=== PATIENT | female | born 1940 | race Caucasian/White ===

== ENCOUNTER 2018-01-03 10:02 | Inpatient (IN) | END 2018-01-05 19:15 | DRG 470 ==

== ENCOUNTER 2018-08-13 06:11 | Inpatient (IN) | payer MEDICARE, OTHER ==
[~2018-08-13] VITALS: Ht 152.4 cm; Wt 59.9 kg
[2018-08-13] VITALS (29 sets, daily range): BP systolic 113–180; BP diastolic 55–90; PULSE 56–88; RESP 14–20
[~2018-08-13 06:11] MED LIST: ACETAMINOPHEN 500 MG TAB PO ONE; DEXAMETHASONE 4 MG/ML 1 ML INJ IV ONE; HIP PAIN COCKTAIL VANCO INJ SCH; LACTATED RINGER'S 1,000 ML IV SCH; LANSOPRAZOLE 30 MG CAP PO ONE; ONDANSETRON 4 MG INJ IV ONE; TRANEXAMIC ACID 1GM/100ML(PMX) 100 ML INTRA-OP X1 IVPB ONE; VANCOMYCIN 1 GM (PMX) 250 ML IVPB ONE; oxyCODONE (CR) 10 MG TAB [oxyCONTIN] PO ONE
--- NOTE | 2018-08-13 06:25 | HPN ---
Date/Time of Note Date/Time of Note DATE: 08/13/18 TIME: 06:24 Interval H&P Admission Note Pt. seen H&P reviewed: No system changes JESSICA DUDLEY MD August 13, 2018 06:24
[2018-08-13] MEDS ORDERED: POLYMYXIN B 500000 UNIT INJ ONE (06:51)
--- NOTE | 2018-08-13 07:02 | PREAC ---
Date/Time of Note Date/Time of Note DATE: 08/13/18 TIME: 06:57 Anesthesia Eval and Record Evaluation Time Pre-Procedure Interview DATE: 08/13/18 TIME: 06:57 Age 77 Sex female NPO: 8 hrs Preoperative diagnosis DJD Planned procedure TKA R. Past Medical History Past Medical History: Includes Cardio: Dyslipidemia GI: Obesity Surgery & Anesthesia Issues Hx of PONV (Possibly Du to Doramorph) Meds Anticoagulation: No Beta Tan within 24 hr: No Reason Beta Tan not given: Pt. not on B-Tan No Active Prescriptions or Reported Meds Current Medications Lactated Ringer's 1,000 ml @ 125 mls/hr Q8H IV ; Start 08/13/18 at 06:00; Stop 08/13/18 at 13:59 Vancomycin HCl 250 ml @ 250 mls/hr PRE-OP ONCE IVPB ; Start 08/13/18 at 06:00; Stop 08/13/18 at 06:59 Ropivacaine/ Morphine Sulfate/ Clonidine HCl/ Epinephrine/ Ketorolac Tromethamine/ Vancomycin HCl/ Sodium Chloride INTRA-OP INJ ; Start 08/13/18 at 06:00 Meds reviewed: Yes Allergies Coded Allergies: Penicillins (Verified Allergy, Mild, rash, 01/01/18) milk (Verified Allergy, Mild, diarrhea, 01/03/18) Allergies Reviewed: Yes Labs/Studies Labs Reviewed: Reviewed by anesthesiologist test: N/A Pre-procedure Exam Airway: Adequate mouth opening Mallampati: Mallampati III Teeth: Normal Lung: Normal Heart: Normal ASA Physical Status ASA physical status: 2 Emergency: None Planned Anesthetic General/MAC: LMA (Spinal for Post Op Pain) Pre-operative Attestations Prior to commencing anesthesia and surgery, the patient was re-evaluated, there was verification of: *The patient's identity *The results of appropriate recent lab work and preoperative vital signs *The above evaluation not changing prior to induction *Anesthetic plan, risk benefits, alternative and complications discussed with patient/family; questions answered; patient/family understands, accepts and wishes to proceed. VITOR MIX MD August 13, 2018 07:02
[2018-08-13] MEDS ORDERED: PHENYLephrine (100 MCG/ML) 10ML SYG ONE (07:04)
[2018-08-13] MEDS ORDERED: DESFLURANE 15 MIN ONE (07:04)
[2018-08-13] MEDS ORDERED: MIDAZOLAM 1 MG/ML 2 ML INJ ONE (07:04)
[2018-08-13] MEDS ORDERED: PROPOFOL 20 ML ONE (07:04)
[2018-08-13] MEDS ORDERED: ASPI81TA52 PO (07:08)
[2018-08-13] MEDS ORDERED: VIT1TABL46 PO (07:08)
[2018-08-13] MEDS ORDERED: CHOL100062 PO (07:09)
[2018-08-13] MEDS ORDERED: ASCO500C7 PO (07:09)
[2018-08-13] MEDS ORDERED: ONDANSETRON 4 MG INJ ONE (07:12)
[2018-08-13] MEDS ORDERED: ACETAMINOPHEN 1000MG/100ML IV 100 ML IVPB ONE (07:30)
[2018-08-13] MEDS: TRANEXAMIC ACID 1GM/100ML(PMX) 100 ML PRE-OP X1 IVPB ONE ×2 (08:05→09:09)
[2018-08-13] MEDS ORDERED: BACITRACIN 50000 UNITS INJ IRR ONE (08:28)
[2018-08-13] MEDS ORDERED: TRANEXAMIC ACID 1GM/100ML(PMX) 100 ML ONE (08:55)
[2018-08-13] MEDS ORDERED: ACETAMINOPHEN 500 MG TAB PO PRN (09:00)
[2018-08-13] MEDS ORDERED: ONDANSETRON 4 MG INJ IV PRN (09:00)
[2018-08-13] MEDS ORDERED: ROPIVACAINE 0.5 % 30 ML VIAL ONE (09:26)
--- NOTE | 2018-08-13 09:34 | SIPON ---
Date/Time of Note Date/Time of Note DATE: 08/13/18 TIME: 09:33 Operative Report Preoperative Diagnosis Right Knee Osteoarthritis Postoperative Diagnosis Same Operation/Procedure Performed Right Total Knee Arthroplasty Surgeon Jess Dudley MD child development assistant Reagan López Second assist: RICKI JEAN-BAPTISTE Anesthesia: spinal Estimated blood loss: 250 - 300 ml's Transfusion Required none Specimen bone Grafts/Implants none Complications none JESS DUDLEY MD August 13, 2018 09:34
[2018-08-13] MEDS ORDERED: ICOS1CAP PO (09:41)
[2018-08-13] MEDS ORDERED: SIMV5TAB14 PO (09:41)
--- NOTE | 2018-08-13 09:45 | OPR ---
Date/Time of Note Date/Time of Note DATE: 08/13/18 TIME: 09:40 Operative Report Free Text/Dictation DATE OF OPERATION: August 13, 2018 SURGEON: Jessica Dudley MD BPM ANALYST: Reagan GUEVARA BPM ANALYST: MANDY Henry PREOPERATIVE DIAGNOSIS: Right knee osteoarthritis. POSTOPERATIVE DIAGNOSIS: Right knee osteoarthritis. PROCEDURES PERFORMED: Right total knee arthroplasty, CPT code 48932. ANESTHESIOLOGIST: Dr. Borden ANESTHESIA: Spinal. ESTIMATED BLOOD LOSS: 250 mL. COMPLICATIONS: None. SPECIMENS: Resected bone. DISPOSITION: PACU in stable condition. TOURNIQUET TIME: 46 minutes at 250 mmHg. IMPLANT USED: Roman and Nephew size 2 Kayla tibial baseplate, size 3 standard posterior stabilized Oxinium femur, size 11mm high flexion polyethylene, size 32 mm patella. INDICATION FOR PROCEDURE: This is an 77-year-old female with end-stage osteoarthritis of the right knee who had failed nonoperative management. Risks, benefits, alternatives of surgical intervention were discussed with the patient and informed consent was obtained. The risks of surgery include but are not limited to infection, deep venous thrombosis, pulmonary embolism, damage to nerves and blood vessels, numbness around incision site, stiffness of knee, need for total knee manipulation under anesthesia, need for blood transfuion, heart attack, stroke, risks associated with anesthesia, implant loosening, wear of prosthesis, need for revision surgery, and . DESCRIPTION OF PROCEDURE: The patient was met in the preoperative suite. The correct operative site was confirmed and marked. The patient was then brought into operating room. After induction of anesthesia, the patient was placed in the supine position on the operating room table. A tourniquet was applied to right upper thigh. The right lower extremity was prepped and draped in the usual sterile fashion. Before starting, a timeout was taken to identify the correct operative site and confirm preoperative antibiotics consisting of 1 g of IV Ancef, along with 1 g of tranexamic acid were administered. At this point, the right leg was elevated and exsanguinated with an Esmarch and tourniquet was then insufflated for the above noted time. A midline incision was made and median parapatellar arthrotomy was then completed. The lateral patellar retinacular ligaments were released. A sleeve of tissue was released from the medial proximal tibia. The cruciate ligaments and the menisci were then excised. At this point, the custom distal femur cutting block was then pinned and 9.5 mm was resected from the distal femur. The 4-in-1 cutting block, size 3 was then placed. An jan wing was used to confirm that notching of the anterior cortex of the femur would not occur. The anterior and posterior condylar cuts were completed followed by the anterior and posterior chamfer cuts. The osteophytes were then removed with a rongeur. At this point, the tibia was subluxed anteriorly. Appropriate retractors were placed. The custom tibial cutting block was then pinned. The drop was used to ensure the correct alignment. Osteophytes were then removed. At this point, the flexion extension gaps were checked with a 9 mm gap checkering machine operator and noted to be loose in both. Next, trial 3 standard femur was then pinned and the box cut was then completed. The tibia was then subluxed anteriorly and measured to size 2. The tibial tray was then pinned and a keel was then punched. The trial components were placed with a 11 mm polyethylene and noted to have full extension and greater than 120 degrees of flexion. The patella was then subluxed laterally and sized to 22 mm. Approximately, 7 mm was resected. The patellar was sized to 32 mm. The button was placed and noted to have excellent patellar tracking. The trial components were removed. All bony surfaces were pulse lavaged and dried. The appropriate size components were then cemented and the knee was held in extension with a 11 mm trial polyethylene until the cement cured. Once the cement had cured, the trial polyethylene was removed and the appropriate size polyethylene was then placed. The tranexamic acid was redosed. The cocktail was then injected. The extensor mechanism was closed using #1 Stratafix and the subcutaneous tissue with 2-0 Vicryl and the skin with 4-0 Monocryl. Steri-Strips were applied along with a sterile dressing. There were no complications. The patient was transferred to PACU in stable condition. POSTOPERATIVE CARE: The patient will be weightbearing as tolerated. The patient will work with physical therapy, and will receive two additional doses of IV antibiotics along with aspirin 81 mg p.o. b.i.d. for 6 weeks. Upon discharge, patient will follow up in my office within 2 weeks postoperatively. JESSICA DUDLEY MD August 13, 2018 09:45
--- NOTE | 2018-08-13 09:56 | PAC ---
Date/Time of Note Date/Time of Note DATE: 08/13/18 TIME: 09:56 Post-Anesthesia Notes Post-Anesthesia Note Activity: WNL Respiratory function: WNL Cardiovascular function: WNL Mental status: Baseline Pain reasonably controlled: Yes Hydration appropriate: Yes Nausea/Vomiting absent: Yes VITOR MIX MD August 13, 2018 09:56
[2018-08-13] MEDS ORDERED: SENNA/DOCUSATE NA (8.6MG/50MG) TAB PO PRN (10:00)
[2018-08-13] MEDS ORDERED: NA PHOSPHATE/BIPHOS 133 ML ENEMA PR PRN (10:00)
[2018-08-13] MEDS ORDERED: NACL 0.9% 3 ML SYG IV SCH (10:00)
[2018-08-13] MEDS ORDERED: NALOXONE (0.4 MG/ML) INJ IV PRN (10:00)
[2018-08-13] MEDS ORDERED: BISACODYL 10 MG SUPP PR PRN (10:00)
[2018-08-13] MEDS ORDERED: MAGNESIUM HYDROXIDE 30ML CUP PO PRN (10:00)
[2018-08-13] MEDS ORDERED: DOCUSATE SODIUM 100 MG CAP PO ONE (10:00)
--- NOTE | 2018-08-13 14:40 | CONS ---
Assessment/Plan Assessment/Plan Hospital Course (Demo Recall) SUBJECTIVE: Lying in bed, no acute distress. OBJECTIVE: Vital signs-see below PHYSICAL EXAM: Constitutional: Adequately built,not in acute distress. HEENT: Head atraumatic and normocephalic. Eyes: Extraocular muscles intact. Anicteric sclerae. Pupils equal bilaterally, reactive to light. NECK: Supple without lymph node. CHEST: Clear and good breath sounds equally. No wheezing. No rhonchi. HEART: S1, S2. Regular rate and rhythm. ABDOMEN: Soft/non tender with no rebound tenderness. Bowel sounds were present. EXTREMITIES: Right knee covered with dressing c/d/i. no cyanosis, clubbing or edema. NEUROLOGIC: Alert and oriented x3. No focal deficit. No sensory deficit. PSYCHOSOCIAL: No signs of depression. INTEGUMENTARY: No open wounds. ASSESSMENT AND PLAN:77 yo F w/ hyperlipidemia, gume knee osteoarthritis with a history of left total knee arthroplasty in 2018, brought in for elective right total knee arthroplasty.. Right knee osteoarthritis -Status post right total knee arthroplasty 08/13/2089 -dvt ppx,pain control -Weightbearing as appropriate per surgical team Dyslipidemia -Resume statin/omega-3 supplementation Hypertension, likely postoperative changes/pain -continue to monitor for now. -We will reassess need for initiation of antihypertensive if indicated. Chronic anemia -Previous labs from prior admissions showed anemia. Will obtain iron panel and treat accordingly. History of left total knee arthroplasty. DVT prophylaxis: Twice daily per orthopedic/SCDs Thank you for allowing us to partake in the care of this pleasant lady. We will follow patient along with you. Patient was seen in collaboration with Dr. Damon. Approximately 60 m spent on this consultation. Consultation Date/Type/Reason Admit Date/Time August 13, 2018 at 06:11 Type of Consult internal medicine Requesting Provider: JESSICA DUDLEY MD Date/Time of Note DATE: 08/13/18 TIME: 14:23 Hx of Present Illness 77-year-old female with a history of hyperlipidemia, bilateral knee osteoarthritis with a history of left total knee arthroplasty in 2018, not in for elective right total knee arthroplasty. Patient underwent right total knee arthroplasty on 08/13/2018. Hospitalist consultation was requested postoperatively for co-medical management. At my encounter with the patient, she is lying in bed, denies chest pain, palpitation, shortness of breath, nausea, vomiting, abdominal pain, loss of conscious, headache, dizziness, fever, chills or other constitutional symptoms. Right knee covered with dressing, no pain reported. A 12 point review of system was assessed and is negative other than what is mentioned in the HPI. Past Medical History See HPI Home Meds Reported Medications Icosapent Ethyl (VASCEPA) 1 Gm Capsule, 1 GM PO BID, CAP 08/13/18 Simvastatin* (Simvastatin*) 5 Mg Tablet, 5 MG PO QHS, #30 TAB 08/13/18 Ascorbic Acid* (Vitamin C*) 500 Mg Capsule.sa, 500 MG PO DAILY, CAP 08/13/18 Cholecalciferol* (Vitamin D3*) 1,000 Unit Tablet, 1000 UNIT PO DAILY, TAB 08/13/18 Vitamin B Complex* (Vitamin B Complex*) 1 Each Tablet, 1 TAB PO DAILY, TAB 08/13/18 Aspirin (Low Dose Aspirin) 81 Mg Tablet.dr, 81 MG PO DAILY, #30 TAB 08/13/18 Medications Current Medications Ropivacaine/ Morphine Sulfate/ Clonidine HCl/ Epinephrine/ Ketorolac Tromethamine/ Vancomycin HCl/ Sodium Chloride INTRA-OP INJ ; Start 08/13/18 at 06:00 Acetaminophen (Tylenol Tab) 500 mg Q4H PRN PO .PAIN 1-3; Start 08/13/18 at 09:00 Ondansetron HCl (Zofran Inj) 4 mg Q6H PRN IV .NAUSEA/VOMITING; Start 08/13/18 at 09:00 Miscellaneous Information (* Miscellaneous Pharmacy Order) GIVEN NEURAXIAL XX ; Start 08/13/18 at 09:00 IV Flush (NS 3 ml) 3 ml PER PROTOCOL IV ; Start 08/13/18 at 10:00 Ketorolac Tromethamine (Toradol) 15 mg Q6H PRN IV .PAIN; Start 08/13/18 at 10:00 Vancomycin HCl 250 ml @ 125 mls/hr Q12H IVPB ; Start 08/13/18 at 18:00; Stop 08/14/18 at 07:59 Celecoxib (Celebrex) 100 mg BID PO ; Start 08/14/18 at 09:00 Gabapentin (Neurontin) 100 mg TID PO ; Start 08/13/18 at 13:00 Pantoprazole (Protonix Tab) 40 mg DAILY@06 PO ; Start 08/15/18 at 06:00 Docusate Sodium (Colace) 200 mg BID PO ; Start 08/14/18 at 09:00; Stop 08/17/18 at 08:59 Simethicone (Mylicon) 80 mg TID PRN PO .GAS; Start 08/13/18 at 10:00 Senna/Docusate Sodium (Senokot-S) 2 tab BID PRN PO .CONSTIPATION; Start 08/13/18 at 10:00 Magnesium Hydroxide (Milk Of Mag) 30 ml HS PRN PO .CONSTIPATION; Start 08/13/18 at 10:00 Bisacodyl (Dulcolax Supp) 10 mg DAILY PRN MO .CONSTIPATION; Start 08/13/18 at 10:00 Sodium Biphosphate/ Sodium Phosphate (Fleet Enema) 133 ml DAILY PRN MO .CONSTIPATION; Start 08/13/18 at 10:00 Naloxone HCl (Narcan) 0.2 mg Q2M PRN IV .RESP RATE; Start 08/13/18 at 10:00 Aspirin (Halfprin) 81 mg BID PO ; Start 08/14/18 at 09:00 Tramadol HCl (Ultram) 50 mg Q6H PRN GTB MODERATE PAIN LEVEL 4-6; Start 08/13/18 at 10:00 Allergies: Coded Allergies: Penicillins (Verified Allergy, Mild, rash, 08/13/18) milk (Verified Allergy, Mild, diarrhea, 08/13/18) Past Surgical History See HPI Social History Denied history of alcohol, smoking or illicit drug use Smoking Status: Never smoker Exam/Review of Systems Exam Vitals Vital Signs Date Temp Pulse Resp B/P (MAP) Pulse Ox O2 O2 Flow FiO2 Time Delivery Rate 08/13/18 56 15 131/59 100 Nasal 2.0 12:08 (83) Cannula 08/13/18 98.2 09:57 Medications Medication Current Medications Ropivacaine/ Morphine Sulfate/ Clonidine HCl/ Epinephrine/ Ketorolac Tromethamine/ Vancomycin HCl/ Sodium Chloride INTRA-OP INJ ; Start 08/13/18 at 06:00 Acetaminophen (Tylenol Tab) 500 mg Q4H PRN PO .PAIN 1-3; Start 08/13/18 at 09:00 Ondansetron HCl (Zofran Inj) 4 mg Q6H PRN IV .NAUSEA/VOMITING; Start 08/13/18 at 09:00 Miscellaneous Information (* Miscellaneous Pharmacy Order) GIVEN NEURAXIAL XX ; Start 08/13/18 at 09:00 IV Flush (NS 3 ml) 3 ml PER PROTOCOL IV ; Start 08/13/18 at 10:00 Ketorolac Tromethamine (Toradol) 15 mg Q6H PRN IV .PAIN; Start 08/13/18 at 10:00 Vancomycin HCl 250 ml @ 125 mls/hr Q12H IVPB ; Start 08/13/18 at 18:00; Stop 08/14/18 at 07:59 Celecoxib (Celebrex) 100 mg BID PO ; Start 08/14/18 at 09:00 Gabapentin (Neurontin) 100 mg TID PO ; Start 08/13/18 at 13:00 Pantoprazole (Protonix Tab) 40 mg DAILY@06 PO ; Start 08/15/18 at 06:00 Docusate Sodium (Colace) 200 mg BID PO ; Start 08/14/18 at 09:00; Stop 08/17/18 at 08:59 Simethicone (Mylicon) 80 mg TID PRN PO .GAS; Start 08/13/18 at 10:00 Senna/Docusate Sodium (Senokot-S) 2 tab BID PRN PO .CONSTIPATION; Start 08/13/18 at 10:00 Magnesium Hydroxide (Milk Of Mag) 30 ml HS PRN PO .CONSTIPATION; Start 08/13/18 at 10:00 Bisacodyl (Dulcolax Supp) 10 mg DAILY PRN MO .CONSTIPATION; Start 08/13/18 at 10:00 Sodium Biphosphate/ Sodium Phosphate (Fleet Enema) 133 ml DAILY PRN MO .CONSTIPATION; Start 08/13/18 at 10:00 Naloxone HCl (Narcan) 0.2 mg Q2M PRN IV .RESP RATE; Start 08/13/18 at 10:00 Aspirin (Halfprin) 81 mg BID PO ; Start 08/14/18 at 09:00 Tramadol HCl (Ultram) 50 mg Q6H PRN GTB MODERATE PAIN LEVEL 4-6; Start 08/13/18 at 10:00 ALEX SON NP August 13, 2018 14:38
[2018-08-13] MEDS ORDERED: hydrALAzine 20 MG INJ IV PRN (15:00)
[2018-08-13] MEDS: GABAPENTIN 100 MG CAP PO SCH ×2 (15:20→20:21)
[2018-08-13] MEDS: FISH OIL 1,000 MG CAP PO SCH ×2 (15:20→20:21)
[2018-08-13] MEDS: VANCOMYCIN 1 GM (PMX) 250 ML IVPB SCH (18:00)
[2018-08-13] MEDS: ATORVASTATIN 10 MG TAB PO SCH (20:21)
[2018-08-14 01:23] VITALS: BP 118/62; PULSE 74; RESP 17
[2018-08-14] MEDS: VANCOMYCIN 1 GM (PMX) 250 ML IVPB SCH (06:19)
[2018-08-14] MEDS: KETOROLAC 15 MG INJ IV PRN ×2 (06:22→21:26)
[2018-08-14 07:28] VITALS: BP 112/53; PULSE 64; RESP 18
[2018-08-14] MEDS: VITAMIN B COMPLEX/VIT C CAP PO SCH (08:43)
[2018-08-14] MEDS: ASPIRIN (EC) 81 MG TAB PO SCH ×2 (08:43→20:00)
[2018-08-14] MEDS: ASCORBIC ACID 500 MG TAB PO SCH (08:43)
[2018-08-14] MEDS: GABAPENTIN 100 MG CAP PO SCH ×3 (08:43→20:00)
[2018-08-14] MEDS: CHOLECALCIFEROL 1,000 UNIT TAB PO SCH (08:43)
[2018-08-14] MEDS: DOCUSATE SODIUM 100 MG CAP PO SCH ×2 (08:43→20:01)
[2018-08-14] MEDS: CELECOXIB 100 MG CAP PO SCH ×2 (08:43→20:01)
[2018-08-14] MEDS: FISH OIL 1,000 MG CAP PO SCH ×2 (08:43→20:00)
--- NOTE | 2018-08-14 11:35 | CONS ---
Assessment/Plan Assessment/Plan Hospital Course (Demo Recall) SUBJECTIVE: Right knee pain well controlled. OBJECTIVE: Physical Exam General: Adequately build 77 year-old female lying in bed in no apparent distress. HEENT: Normocephalic, atraumatic. Eyes: Anicteric sclerae, conjunctivae clear. ENT: Nasal septum midline, oral mucosa moist. Neck supple, no JVD noticed. Respiratory: Bilaterally clear breath sounds. No use of accessory muscles of respiration. No adventitious breath sounds. Cardiovascular: S1, S2 heard. Regular rate and rhythm. Abdomen: Soft, nontender, and nondistended. Bowel sounds positive in all 4 quadrants. Genitourinary: Deferred. Extremities: No cyanosis, no clubbing, no edema. Peripheral pulses palpable. Neurologic: Cranial nerves II through XII grossly intact. The patient is awake, alert, and oriented. Skin: Normal skin turgor. No skin rashes. Labs & Vitals per chart ASSESSMENT & PLAN 77-year-old female with comorbidities including dyslipidemia and bilateral knee osteoarthritis with history of left total knee arthroplasty in 2018. The patient was brought to to [facility] electively for a right total knee arthroplasty. The patient underwent the arthroplasty on August 13, 2018 and was admitted to inpatient setting for further monitoring. 1. Right knee osteoarthritis. -Status post right total knee arthroplasty on 08/13/2018. -Postoperative day #1. -Continue pain control. -Physical therapy as per orthopedic surgery. -Anticoagulation as per orthopedic surgery. 2. Dyslipidemia. -Continue statin and omega-3 supplementation. 3. Normocytic anemia. -Most probably anemia of chronic disease. -Monitor H&H closely. CODE STATUS: Full code Diet: Low-cholesterol diet. Anticoagulation: As per orthopedic surgery. Patient remains stable on postoperative day #1. Discharge planning as per orthopedic surgery. The patient was seen in collaboration with Dr. Story. Consultation Date/Type/Reason Admit Date/Time August 13, 2018 at 06:11 Initial Consult Date August 13, 2018 Type of Consult Medical Reason for Consultation Medical management. Requesting Provider: JESSICA DUDLEY MD Date/Time of Note DATE: 08/14/18 TIME: 11:33 Exam/Review of Systems Exam Vitals Vital Signs Date Temp Pulse Resp B/P (MAP) Pulse Ox O2 O2 Flow FiO2 Time Delivery Rate 08/14/18 97.9 64 18 112/53 93 07:28 (72) 08/13/18 Nasal 19:52 Cannula 08/13/18 2.0 16:25 Intake and Output 08/13/18 08/13/18 08/14/18 1414:59 22:59 06:59 IntakeIntake Total 2200 ml 1730 ml OutputOutput Total 50 ml BalanceBalance 2150 ml 1730 ml Results Result Diagram: 08/14/18 0430 08/14/18 0430 Results 24hrs Laboratory Tests Test 08/14/18 04:30 08/14/18 07:01 White Blood Count 12.0 H Red Blood Count 4.30 Hemoglobin 11.8 L Hematocrit 36.3 L Mean Corpuscular Volume 84.4 Mean Corpuscular Hemoglobin 27.4 L Mean Corpuscular Hemoglobin Concent 32.5 Red Cell Distribution Width 14.1 Platelet Count 233 Mean Platelet Volume 9.3 Immature Granulocytes % 0.500 H Neutrophils % 62.6 Lymphocytes % 24.6 Monocytes % 12.2 H Eosinophils % 0.0 Basophils % 0.1 Nucleated Red Blood Cells % 0.0 Immature Granulocytes # 0.060 H Neutrophils # 7.5 Lymphocytes # 3.0 H Monocytes # 1.5 H Eosinophils # 0.0 Basophils # 0.0 Nucleated Red Blood Cells # 0.0 Sodium Level 143 Potassium Level 4.3 Chloride Level 108 Carbon Dioxide Level 30 Anion Gap 5 Blood Urea Nitrogen 21 H Creatinine 0.83 Est Glomerular Filtrat Rate mL/min Glucose Level 143 Hemoglobin A1c 5.8 Calcium Level 8.7 Iron Level 50 Total Iron Binding Capacity 265 Percent Iron Saturation 19 L Triglycerides Level 171 H Cholesterol Level 207 H LDL Cholesterol, Calculated 135 HDL Cholesterol 38 Cholesterol/HDL Ratio 5.4 Lab Scanned Report REFERENCE LAB Medications Medication Current Medications Acetaminophen (Tylenol Tab) 500 mg Q4H PRN PO .PAIN 1-3; Start 08/13/18 at 09:00 Ondansetron HCl (Zofran Inj) 4 mg Q6H PRN IV .NAUSEA/VOMITING; Start 08/13/18 at 09:00 Miscellaneous Information (* Miscellaneous Pharmacy Order) GIVEN NEURAXIAL XX ; Start 08/13/18 at 09:00 IV Flush (NS 3 ml) 3 ml PER PROTOCOL IV ; Start 08/13/18 at 10:00 Ketorolac Tromethamine (Toradol) 15 mg Q6H PRN IV .PAIN Last administered on 08/14/18 06:22; Admin Dose 15 MG; Start 08/13/18 at 10:00 Celecoxib (Celebrex) 100 mg BID PO Last administered on 08/14/18 08:43; Admin Dose 100 MG; Start 08/14/18 at 09:00 Gabapentin (Neurontin) 100 mg TID PO Last administered on 08/14/18 08:43; Admin Dose 100 MG; Start 08/13/18 at 13:00 Pantoprazole (Protonix Tab) 40 mg DAILY@06 PO ; Start 08/15/18 at 06:00 Docusate Sodium (Colace) 200 mg BID PO Last administered on 08/14/18 08:43; Admin Dose 200 MG; Start 08/14/18 at 09:00; Stop 08/17/18 at 08:59 Simethicone (Mylicon) 80 mg TID PRN PO .GAS; Start 08/13/18 at 10:00 Senna/Docusate Sodium (Senokot-S) 2 tab BID PRN PO .CONSTIPATION; Start 08/13/18 at 10:00 Magnesium Hydroxide (Milk Of Mag) 30 ml HS PRN PO .CONSTIPATION; Start 08/13/18 at 10:00 Bisacodyl (Dulcolax Supp) 10 mg DAILY PRN [place] .CONSTIPATION; Start 08/13/18 at 10:00 Sodium Biphosphate/ Sodium Phosphate (Fleet Enema) 133 ml DAILY PRN LA .CONSTIPATION; Start 08/13/18 at 10:00 Naloxone HCl (Narcan) 0.2 mg Q2M PRN IV .RESP RATE; Start 08/13/18 at 10:00 Aspirin (Halfprin) 81 mg BID PO Last administered on 08/14/18 08:43; Admin Dose 81 MG; Start 08/14/18 at 09:00 Tramadol HCl (Ultram) 50 mg Q6H PRN GTB MODERATE PAIN LEVEL 4-6; Start 08/13/18 at 10:00 Ascorbic Acid (Vitamin C) 500 mg DAILY PO Last administered on 08/14/18 08:43; Admin Dose 500 MG; Start 08/14/18 at 09:00 Cholecalciferol (Vitamin D) 1,000 unit DAILY PO Last administered on 08/14/18 08:43; Admin Dose 1,000 UNIT; Start 08/14/18 at 09:00 Vitamin B Complex/ Vitamin C (Berocca) 1 cap DAILY PO Last administered on 08/14/18at 08:43; Admin Dose 1 CAP; Start 08/14/18 at 09:00 Fish Oil (Fish Oil) 1,000 mg BID PO Last administered on 08/14/18at 08:43; Admin Dose 1,000 MG; Start 08/13/18 at 15:00 Atorvastatin Calcium (Lipitor) 10 mg QHS PO Last administered on 08/13/18at 20:21; Admin Dose 10 MG; Start 08/13/18 at 21:00 Hydralazine HCl (Apresoline) 10 mg Q6H PRN IV sbp>160; Start 08/13/18 at 15:00 BIBIANA GAYTAN NP August 14, 2018 11:35
[2018-08-14 13:32] VITALS: BP 97/48; PULSE 69; RESP 18
[2018-08-14 14:00] VITALS: BP 115/58; PULSE 68; RESP 20
[2018-08-14] MEDS: traMADol 50 MG TAB GTB PRN ×2 (14:22→20:01)
--- NOTE | 2018-08-14 17:51 | QN ---
Documentation Comment As Physician Advisor I have reviewed the chart and have determined that as of today, this patient continues to receive medically necessary care required for the diagnosis and treatment of illness or injury. There has been no unreasonable delay in the rendering of medically necessary services, and medically necessary care has required a length of stay greater than two midnights. Additional information gained during the stay now suggests this patient should have been classified as an inpatient at the time of admission, and I will change the status to inpatient to reflect that medical judgment. Besides the notes from the medical providers, the following information was used in this determination: Comorbidities including dyslipidemia, anemia, and age >75 years Intravenous pain medications Ongoing PT needs. Please call me at [phone] with questions. MADAY MCFADDEN MD August 14, 2018 17:51
[2018-08-14] MEDS: ATORVASTATIN 10 MG TAB PO SCH (20:01)
[2018-08-14 20:18] VITALS: BP 114/52; PULSE 66; RESP 20
[2018-08-15 01:32] VITALS: BP 130/60; PULSE 74; RESP 18
[2018-08-15] MEDS: traMADol 50 MG TAB GTB PRN ×3 (01:33→19:35)
[2018-08-15] MEDS: PANTOPRAZOLE (EC) 40 MG TAB PO SCH (06:21)
[2018-08-15 09:09] VITALS: BP 126/61; PULSE 60; RESP 18
[2018-08-15] MEDS: DOCUSATE SODIUM 100 MG CAP PO SCH ×2 (09:48→20:12)
[2018-08-15] MEDS: ASPIRIN (EC) 81 MG TAB PO SCH ×2 (09:49→20:12)
[2018-08-15] MEDS: FISH OIL 1,000 MG CAP PO SCH ×2 (09:49→20:12)
[2018-08-15] MEDS: VITAMIN B COMPLEX/VIT C CAP PO SCH (09:49)
[2018-08-15] MEDS: CHOLECALCIFEROL 1,000 UNIT TAB PO SCH (09:49)
[2018-08-15] MEDS: CELECOXIB 100 MG CAP PO SCH ×2 (09:49→20:12)
[2018-08-15] MEDS: ASCORBIC ACID 500 MG TAB PO SCH (09:49)
[2018-08-15] MEDS: GABAPENTIN 100 MG CAP PO SCH ×3 (09:50→20:12)
[2018-08-15] MEDS: KETOROLAC 15 MG INJ IV PRN (09:51)
--- NOTE | 2018-08-15 11:30 | CONS ---
Assessment/Plan Assessment/Plan Hospital Course (Demo Recall) SUBJECTIVE: Right knee pain well controlled. OBJECTIVE: Physical Exam General: Adequately build 77 year-old female lying in bed in no apparent distress. HEENT: Normocephalic, atraumatic. Eyes: Anicteric sclerae, conjunctivae clear. ENT: Nasal septum midline, oral mucosa moist. Neck supple, no JVD noticed. Respiratory: Bilaterally clear breath sounds. No use of accessory muscles of respiration. No adventitious breath sounds. Cardiovascular: S1, S2 heard. Regular rate and rhythm. Abdomen: Soft, nontender, and nondistended. Bowel sounds positive in all 4 quadrants. Genitourinary: Deferred. Extremities: No cyanosis, no clubbing, no edema. Peripheral pulses palpable. Neurologic: Cranial nerves II through XII grossly intact. The patient is awake, alert, and oriented. Skin: Normal skin turgor. No skin rashes. Labs & Vitals per chart ASSESSMENT & PLAN 77-year-old female with comorbidities including dyslipidemia and bilateral knee osteoarthritis with history of left total knee arthroplasty in 2018. The patient was brought to to [facility] electively for a right total knee arthroplasty. The patient underwent the arthroplasty on August 13, 2018 and was admitted to inpatient setting for further monitoring. 1. Right knee osteoarthritis. -Status post right total knee arthroplasty on 08/13/2018. -Postoperative day #2. -Continue pain control. -Physical therapy as per orthopedic surgery. -Anticoagulation as per orthopedic surgery. 2. Dyslipidemia. -Continue statin and omega-3 supplementation. 3. Normocytic anemia. -Most probably anemia of chronic disease. -Monitor H&H closely. CODE STATUS: Full code Diet: Low-cholesterol diet. Anticoagulation: As per orthopedic surgery. Patient remains stable on postoperative day #2. Minimal hyperkalemia noticed. Monitor. Discharge planning as per orthopedic surgery. The patient was seen in collaboration with Dr. Story. Consultation Date/Type/Reason Admit Date/Time August 14, 2018 at 14:54 Initial Consult Date August 13, 2018 Type of Consult Medical Reason for Consultation Medical management. Requesting Provider: JESSICA DUDLEY MD Date/Time of Note DATE: 08/15/18 TIME: 11:28 Exam/Review of Systems Exam Vitals Vital Signs Date Temp Pulse Resp B/P (MAP) Pulse Ox O2 O2 Flow FiO2 Time Delivery Rate 08/15/18 97.8 60 18 126/61 99 09:09 (82) 08/13/18 Nasal 19:52 Cannula 08/13/18 2.0 16:25 Intake and Output 08/14/18 08/14/18 08/15/18 1515:00 23:00 07:00 IntakeIntake Total 550 ml 650 ml BalanceBalance 550 ml 650 ml Results Result Diagram: 08/15/18 0429 08/15/18 0429 Results 24hrs Laboratory Tests Test 08/15/18 04:29 White Blood Count 9.8 Red Blood Count 3.93 L Hemoglobin 10.9 L Hematocrit 34.3 L Mean Corpuscular Volume 87.3 Mean Corpuscular Hemoglobin 27.7 L Mean Corpuscular Hemoglobin Concent 31.8 L Red Cell Distribution Width 14.5 Platelet Count 197 Mean Platelet Volume 9.2 Immature Granulocytes % 0.300 Neutrophils % 49.4 Lymphocytes % 37.3 Monocytes % 11.8 H Eosinophils % 0.9 Basophils % 0.3 Nucleated Red Blood Cells % 0.0 Immature Granulocytes # 0.030 Neutrophils # 4.8 Lymphocytes # 3.7 H Monocytes # 1.2 H Eosinophils # 0.1 Basophils # 0.0 Nucleated Red Blood Cells # 0.0 Sodium Level 142 Potassium Level 5.2 H Chloride Level 105 Carbon Dioxide Level 34 H Anion Gap 3 L Blood Urea Nitrogen 25 H Creatinine 0.89 Est Glomerular Filtrat Rate mL/min Glucose Level 98 # Calcium Level 8.4 Medications Medication Current Medications Acetaminophen (Tylenol Tab) 500 mg Q4H PRN PO .PAIN 1-3; Start 08/13/18 at 09:00 Ondansetron HCl (Zofran Inj) 4 mg Q6H PRN IV .NAUSEA/VOMITING; Start 08/13/18 at 09:00 Miscellaneous Information (* Miscellaneous Pharmacy Order) GIVEN NEURAXIAL XX ; Start 08/13/18 at 09:00 IV Flush (NS 3 ml) 3 ml PER PROTOCOL IV ; Start 08/13/18 at 10:00 Ketorolac Tromethamine (Toradol) 15 mg Q6H PRN IV .PAIN Last administered on at 09:51; Admin Dose 15 MG; Start 08/13/18 at 10:00 Celecoxib (Celebrex) 100 mg BID PO Last administered on 08/15/18at 09:49; Admin Dose 100 MG; Start 08/14/18 at 09:00 Gabapentin (Neurontin) 100 mg TID PO Last administered on 08/15/18at 09:50; Admin Dose 100 MG; Start 08/13/18 at 13:00 Pantoprazole (Protonix Tab) 40 mg DAILY@06 PO Last administered on 08/15/18at 06:21; Admin Dose 40 MG; Start 08/15/18 at 06:00 Docusate Sodium (Colace) 200 mg BID PO Last administered on 08/15/18at 09:48; A dmin Dose 200 MG; Start 08/14/18 at 09:00; Stop 08/17/18 at 08:59 Simethicone (Mylicon) 80 mg TID PRN PO .GAS; Start 08/13/18 at 10:00 Senna/Docusate Sodium (Senokot-S) 2 tab BID PRN PO .CONSTIPATION; Start 08/13/18 at 10:00 Magnesium Hydroxide (Milk Of Mag) 30 ml HS PRN PO .CONSTIPATION; Start 08/13/18 at 10:00 Bisacodyl (Dulcolax Supp) 10 mg DAILY PRN [place] .CONSTIPATION; Start 08/13/18 at 10:00 Sodium Biphosphate/ Sodium Phosphate (Fleet Enema) 133 ml DAILY PRN [place] .CONSTIPATION; Start 08/13/18 at 10:00 Naloxone HCl (Narcan) 0.2 mg Q2M PRN IV .RESP RATE; Start 08/13/18 at 10:00 Aspirin (Halfprin) 81 mg BID PO Last administered on 08/15/18at 09:49; Admin Dose 81 MG; Start 08/14/18 at 09:00 Tramadol HCl (Ultram) 50 mg Q6H PRN GTB MODERATE PAIN LEVEL 4-6 Last administered on 08/15/18at 07:24; Admin Dose 50 MG; Start 08/13/18 at 10:00 Ascorbic Acid (Vitamin C) 500 mg DAILY PO Last administered on 08/15/18at 09:49; Admin Dose 500 MG; Start 08/14/18 at 09:00 Cholecalciferol (Vitamin D) 1,000 unit DAILY PO Last administered on 08/15/18at 09:49; Admin Dose 1,000 UNIT; Start 08/14/18 at 09:00 Vitamin B Complex/ Vitamin C (Berocca) 1 cap DAILY PO Last administered on 08/15/18 09:49; Admin Dose 1 CAP; Start 08/14/18 at 09:00 Fish Oil (Fish Oil) 1,000 mg BID PO Last administered on 08/15/18at 09:49; Admin Dose 1,000 MG; Start 08/13/18 at 15:00 Atorvastatin Calcium (Lipitor) 10 mg QHS PO Last administered on 08/14/18at 20:01; Admin Dose 10 MG; Start 08/13/18 at 21:00 Hydralazine HCl (Apresoline) 10 mg Q6H PRN IV sbp>160; Start 08/13/18 at 15:00 BIBIANA GAYTAN NP August 15, 2018 11:30
[2018-08-15 14:37] VITALS: BP 107/55; RESP 20
[2018-08-15 19:40] VITALS: BP 140/65; PULSE 80; RESP 18
[2018-08-15 20:00] VITALS: BP 140/65; PULSE 82; RESP 18
[2018-08-15] MEDS: ATORVASTATIN 10 MG TAB PO SCH (20:13)
[2018-08-16] MEDS: PANTOPRAZOLE (EC) 40 MG TAB PO SCH (05:51)
[2018-08-16 07:44] VITALS: BP 151/65; PULSE 75; RESP 18
--- NOTE | 2018-08-16 08:49 | CONS ---
Assessment/Plan Assessment/Plan Hospital Course (Demo Recall) SUBJECTIVE: Right knee pain well controlled. OBJECTIVE: Physical Exam General: Adequately build 77 year-old female lying in bed in no apparent distress. HEENT: Normocephalic, atraumatic. Eyes: Anicteric sclerae, conjunctivae clear. ENT: Nasal septum midline, oral mucosa moist. Neck supple, no JVD noticed. Respiratory: Bilaterally clear breath sounds. No use of accessory muscles of respiration. No adventitious breath sounds. Cardiovascular: S1, S2 heard. Regular rate and rhythm. Abdomen: Soft, nontender, and nondistended. Bowel sounds positive in all 4 quadrants. Genitourinary: Deferred. Extremities: No cyanosis, no clubbing, no edema. Peripheral pulses palpable. Neurologic: Cranial nerves II through XII grossly intact. The patient is awake, alert, and oriented. Skin: Normal skin turgor. No skin rashes. Labs & Vitals per chart ASSESSMENT & PLAN 77-year-old female with comorbidities including dyslipidemia and bilateral knee osteoarthritis with history of left total knee arthroplasty in 2018. The patient was brought to to [facility] electively for a right total knee arthroplasty. The patient underwent the arthroplasty on August 13, 2018 and was admitted to inpatient setting for further monitoring. 1. Right knee osteoarthritis. -Status post right total knee arthroplasty on 08/13/2018. -Postoperative day #3. -Continue pain control. -Physical therapy as per orthopedic surgery. -Anticoagulation as per orthopedic surgery. 2. Dyslipidemia. -Continue statin and omega-3 supplementation. 3. Normocytic anemia. -Most probably anemia of chronic disease. -Monitor H&H closely. CODE STATUS: Full code Diet: Low-cholesterol diet. Anticoagulation: As per orthopedic surgery. Patient remains stable on postoperative day #3. Discharge planning as per orthopedic surgery. The patient was seen in collaboration with Dr. Brenner. Consultation Date/Type/Reason Admit Date/Time August 14, 2018 at 14:54 Initial Consult Date August 13, 2018 Type of Consult Medical Reason for Consultation Medical management Requesting Provider: JESSICA DUDLEY MD Date/Time of Note DATE: 08/16/18 TIME: 08:46 Exam/Review of Systems Exam Vitals Vital Signs Date Temp Pulse Resp B/P (MAP) Pulse Ox O2 O2 Flow FiO2 Time Delivery Rate 08/16/18 98.4 75 18 151/65 95 Room Air 07:44 (93) 08/13/18 2.0 16:25 Intake and Output 08/15/18 08/15/18 08/16/18 1515:00 23:00 07:00 IntakeIntake Total 440 ml 1290 ml 450 ml OutputOutput Total 200 ml 400 ml BalanceBalance 440 ml 1090 ml 50 ml Results Result Diagram: 08/16/18 0434 08/16/18 0434 Results 24hrs Laboratory Tests Test 08/16/18 04:34 White Blood Count 9.8 Red Blood Count 4.28 Hemoglobin 11.9 L Hematocrit 37.4 Mean Corpuscular Volume 87.4 Mean Corpuscular Hemoglobin 27.8 L Mean Corpuscular Hemoglobin Concent 31.8 L Red Cell Distribution Width 14.5 Platelet Count 205 Mean Platelet Volume 9.3 Immature Granulocytes % 0.300 Neutrophils % 50.6 Lymphocytes % 35.2 Monocytes % 10.6 Eosinophils % 2.9 Basophils % 0.4 Nucleated Red Blood Cells % 0.0 Immature Granulocytes # 0.030 Neutrophils # 5.0 Lymphocytes # 3.5 H Monocytes # 1.0 H Eosinophils # 0.3 Basophils # 0.0 Nucleated Red Blood Cells # 0.0 Sodium Level 140 Potassium Level 5.1 Chloride Level 102 Carbon Dioxide Level 35 H Anion Gap 3 L Blood Urea Nitrogen 18 Creatinine 0.84 Est Glomerular Filtrat Rate mL/min Glucose Level 115 Calcium Level 8.7 Medications Medication Current Medications Acetaminophen (Tylenol Tab) 500 mg Q4H PRN PO .PAIN 1-3; Start 08/13/18 at 09:00 Ondansetron HCl (Zofran Inj) 4 mg Q6H PRN IV .NAUSEA/VOMITING; Start 08/13/18 at 09:00 Miscellaneous Information (* Miscellaneous Pharmacy Order) GIVEN NEURAXIAL XX ; Start 08/13/18 at 09:00 IV Flush (NS 3 ml) 3 ml PER PROTOCOL IV ; Start 08/13/18 at 10:00 Ketorolac Tromethamine (Toradol) 15 mg Q6H PRN IV .PAIN Last administered on 08/15/18at 09:51; Admin Dose 15 MG; Start 08/13/18 at 10:00 Celecoxib (Celebrex) 100 mg BID PO Last administered on 08/15/18at 20:12; Admin Dose 100 MG; Start 08/14/18 at 09:00 Gabapentin (Neurontin) 100 mg TID PO Last administered on 08/15/18at 20:12; Admin Dose 100 MG; Start 08/13/18 at 13:00 Pantoprazole (Protonix Tab) 40 mg DAILY@06 PO Last administered on 08/15/18 06:21; Admin Dose 40 MG; Start 08/15/18 at 06:00 Docusate Sodium (Colace) 200 mg BID PO Last administered on 08/15/18at 20:12; Admin Dose 200 MG; Start 08/14/18 at 09:00; Stop 08/17/18 at 08:59 Simethicone (Mylicon) 80 mg TID PRN PO .GAS; Start 08/13/18 at 10:00 Senna/Docusate Sodium (Senokot-S) 2 tab BID PRN PO .CONSTIPATION; Start 08/13/18 at 10:00 Magnesium Hydroxide (Milk Of Mag) 30 ml HS PRN PO .CONSTIPATION; Start 08/13/18 at 10:00 Bisacodyl (Dulcolax Supp) 10 mg DAILY PRN [place] .CONSTIPATION; Start 08/13/18 at 10:00 Sodium Biphosphate/ Sodium Phosphate (Fleet Enema) 133 ml DAILY PRN [place] .CONSTIPATION; Start 08/13/18 at 10:00 Naloxone HCl (Narcan) 0.2 mg Q2M PRN IV .RESP RATE; Start 08/13/18 at 10:00 Aspirin (Halfprin) 81 mg BID PO Last administered on 08/15/18at 20:12; Admin Dose 81 MG; Start 08/14/18 at 09:00 Tramadol HCl (Ultram) 50 mg Q6H PRN GTB MODERATE PAIN LEVEL 4-6 Last administered on 08/15/18at 19:35; Admin Dose 50 MG; Start 08/13/18 at 10:00 Ascorbic Acid (Vitamin C) 500 mg DAILY PO Last administered on 08/15/18at 09:49; Admin Dose 500 MG; Start 08/14/18 at 09:00 Cholecalciferol (Vitamin D) 1,000 unit DAILY PO Last administered on 08/15/18at 09:49; Admin Dose 1,000 UNIT; Start 08/14/18 at 09:00 Vitamin B Complex/ Vitamin C (Berocca) 1 cap DAILY PO Last administered on 08/15/18at 09:49; Admin Dose 1 CAP; Start 08/14/18 at 09:00 Fish Oil (Fish Oil) 1,000 mg BID PO Last administered on 08/15/18at 20:12; Admin Dose 1,000 MG; Start 08/13/18 at 15:00 Atorvastatin Calcium (Lipitor) 10 mg QHS PO Last administered on 08/15/18at 20:13; Admin Dose 10 MG; Start 08/13/18 at 21:00 Hydralazine HCl (Apresoline) 10 mg Q6H PRN IV sbp>160; Start 08/13/18 at 15:00 BIBIANA GAYTAN NP August 16, 2018 08:49
[2018-08-16] MEDS: traMADol 50 MG TAB GTB PRN ×2 (09:01→16:55)
[2018-08-16] MEDS: CHOLECALCIFEROL 1,000 UNIT TAB PO SCH (09:06)
[2018-08-16] MEDS: GABAPENTIN 100 MG CAP PO SCH ×2 (09:06→13:42)
[2018-08-16] MEDS: FISH OIL 1,000 MG CAP PO SCH (09:06)
[2018-08-16] MEDS: ASPIRIN (EC) 81 MG TAB PO SCH (09:07)
[2018-08-16] MEDS: CELECOXIB 100 MG CAP PO SCH (09:08)
[2018-08-16] MEDS: DOCUSATE SODIUM 100 MG CAP PO SCH (09:08)
[2018-08-16] MEDS: ASCORBIC ACID 500 MG TAB PO SCH (09:08)
[2018-08-16] MEDS: VITAMIN B COMPLEX/VIT C CAP PO SCH (09:09)
[2018-08-16] MEDS ORDERED: LACTULOSE 30ML CUP PO ONE (10:00)
[2018-08-16 14:00] VITALS: BP 140/63; PULSE 77; RESP 18
== END 2018-08-16 17:10 | DRG 470 ==
LOC: REC 06:11 → INTOOBSV 06:11 → MS1 13:29 → OBSVTOIN 08-14 14:54
PROVIDERS: ADMIT Orthopaedic Surgery Adult Reconstructive Orthopaedic Surgery; ATTEND Orthopaedic Surgery Adult Reconstructive Orthopaedic Surgery
PROC: 0SRC069 Replacement of Right Knee Joint with Oxidized Zirconium on Polyethylene Synthetic Substitute, Cemented, Open Approach (ICD-10-PCS; principal; 2018-08-13 07:30)
DX: M17.11 Unilateral primary osteoarthritis, right knee (principal); I10 Essential (primary) hypertension; E78.5 Hyperlipidemia, unspecified; D64.9 Anemia, unspecified
CPT/HCPCS: 73560; 80048; 80061; 83036; 83540; 85025; 88304; 88311; 97110; 97116; 97161; 97530; 99217; C1713; G0378; J0131; J0171; J1100; J1885; J2250; J2274; J2370; J2405; J2795; J3370